=== PATIENT | female | born 1960 | race Two or more races ===

== ENCOUNTER → 2019-06-16 | Outpatient (CLI) | payer MEDICAID ==
[~2019-06-16] MED LIST: CEPH-37; HYDR-2035; METF100097; NAPR-223; SULF-35
== END | disposition home or self-care (01) ==
LOC: Rad HDHVI 10:43
PROVIDERS: ATTEND Internal Medicine
DX: Z01.810 Encounter for preprocedural cardiovascular examination (principal); I05.9 Rheumatic mitral valve disease, unspecified; E03.9 Hypothyroidism, unspecified; E66.9 Obesity, unspecified
CPT/HCPCS: 93306

== ENCOUNTER → 2019-07-15 | Outpatient (CLI) | payer MEDICAID ==
[~2019-07-15] VITALS: Ht 162.6 cm; Wt 134.7 kg
[~2019-07-15] MED LIST changes: +ADENOSINE 113 MG in GIVE UN-DILUTED 0 ML IV ONE; +ADENOSINE 90 MG/30 ML INJ IV ONE
== END | disposition home or self-care (01) ==
LOC: Rad HDHVI 08:52
PROVIDERS: ATTEND Internal Medicine
DX: Z01.810 Encounter for preprocedural cardiovascular examination (principal); E03.9 Hypothyroidism, unspecified; H26.9 Unspecified cataract; E11.9 Type 2 diabetes mellitus without complications; R63.8 Other symptoms and signs concerning food and fluid intake; Z87.2 Personal history of diseases of the skin and subcutaneous tissue
CPT/HCPCS: 78452; 93005; 96374; 96375; A9500; J0153

== ENCOUNTER → 2019-09-01 | Outpatient (CLI) | payer MEDICAID ==
[~2019-09-01] MED LIST changes: -ADENOSINE 113 MG in GIVE UN-DILUTED 0 ML IV ONE; -ADENOSINE 90 MG/30 ML INJ IV ONE
[2019-09-01 08:30] VITALS: BP 149/67
[2019-09-01 09:15] VITALS: BP 153/57
--- NOTE | 2019-09-01 09:15 | NUR ---
Pre-Op Discharge Summary: See e-MAR for any medications given for this visit. Pre-op orders received and carried out per MD of EKG, LABS and chest xrays. Patient given a copy of EKG with instructions to go to [facility] out patient for further follow up care.
[2019-09-01 12:17] LABS: Basophils # (auto) 0 uL; Basophils % (auto) 0.7 % (0.0-2.0); Calcium 9.1 mg/dL (8.5-10.1); Eosinophils # (auto) 0.1 uL; Eosinophils % (auto) 1.9 % (0.0-7.0); Hematocrit 33.5 % (36.0-46.0); Hemoglobin 11.3 g/dL (12.2-16.2); Lymphocytes # (auto) 1.5 uL; Lymphocytes % (auto) 27.1 % (10.0-50.0); Mean Corpuscular Hemoglobin 29.6 pg (28.0-32.0); Mean Corpuscular Hgb Conc. 33.7 g/dL (32.0-36.0); Mean Corpuscular Volume 87.9 fL (80.0-100.0); Monocytes # (auto) 0.3 uL; Neutrophils # (auto) 3.5 uL; Neutrophils % (auto) 64.3 % (37.0-80.0); Nucleated Red Blood Cells % 0.1 %; Platelet Count (auto) 179 10^3/uL (140-450); Potassium 4.3 mmol/L (3.5-5.1); Red Blood Cells 3.81 10^6/uL (4.0-5.20); White Blood Cell 5.5 10^3/uL (4.4-10.8)
[2019-09-01 12:19] LABS: BUN/Creatinine Ratio 50.6
[2019-09-01 12:33] LABS: INR 0.95 (0.9-1.15); Partial Thromboplastin Time 27.2 sec (23.64-32.05)
== END | disposition home or self-care (01) ==
LOC: Rad HDHVI 08:15
PROVIDERS: ATTEND Internal Medicine
DX: I70.0 Atherosclerosis of aorta (principal)
CPT/HCPCS: 36415; 71046; 80048; 85025; 85610; 85730; 93005; G0463

== ENCOUNTER → 2019-09-17 | Day surgery (SDC) | payer MEDICAID ==
[~2019-09-17] VITALS: Ht 162.6 cm; Wt 129.3 kg
[~2019-09-17] MED LIST changes: +ANGIOMAX 250 MG VIAL IV ONE; +HEPARIN IN NS 1000Units/500mL 0 ML ONE; +IOHEXOL 350 MG/ML 100ML IJ ONE; +LIDOCAINE 2%HCL (LOCAL ANESTH.) INJ 20ML MDV ONE; +MIDAZOLAM HCL 1MG/1ML-2 ML VIAL ONE; +SODIUM CHL 0.9% 0 ML ONE; +fentaNYL CITRATE 100 MCG/2 ML VL ONE
== END | disposition home or self-care (01) ==
LOC: CATH 09:04
PROVIDERS: ATTEND Internal Medicine
DX: Z53.8 Procedure and treatment not carried out for other reasons (principal)
CPT/HCPCS: J2250

== ENCOUNTER 2023-03-05 11:41 | Inpatient (IN) | payer MEDICAID ==
[~2023-03-05] VITALS: Ht 165.1 cm; Wt 142.8 kg
[~2023-03-05 11:41] MED LIST changes: -ANGIOMAX 250 MG VIAL IV ONE; -HEPARIN IN NS 1000Units/500mL 0 ML ONE; -IOHEXOL 350 MG/ML 100ML IJ ONE; -LIDOCAINE 2%HCL (LOCAL ANESTH.) INJ 20ML MDV ONE; -MIDAZOLAM HCL 1MG/1ML-2 ML VIAL ONE; -SODIUM CHL 0.9% 0 ML ONE; -fentaNYL CITRATE 100 MCG/2 ML VL ONE
[2023-03-05] MEDS ORDERED: methylPREDNISolone SOD SUCC 125 MG/2 ML VL IV ONE (12:15)
[2023-03-05 13:17] LABS: Basophils # (auto) 0 10 ^3/uL (0-0.2); Basophils % (auto) 0.8 % (0.0-2.0); Eosinophils # (auto) 0.1 10 ^3/uL (0-0.8); Eosinophils % (auto) 1.1 % (0.0-7.0); Hematocrit 37.5 % (36.0-46.0); Hemoglobin 12.7 g/dL (12.2-16.2); Lymphocytes # (auto) 0.5 10 ^3/uL (0.4-5.4); Lymphocytes % (auto) 8.7 % (10.0-50.0); Mean Corpuscular Hemoglobin 30.6 pg (28.0-32.0); Mean Corpuscular Hgb Conc. 33.9 g/dL (32.0-36.0); Mean Corpuscular Volume 90.2 fL (80.0-100.0); Monocytes # (auto) 0.4 10 ^3/uL (0-1.3); Monocytes % (auto) 6.1 % (0.0-12.0); Neutrophils % (auto) 83.3 % (37.0-80.0); Nucleated Red Blood Cells % 0.1 %; Red Blood Cells 4.15 10^6/uL (4.0-5.20); Red Cell Distribution Width 14.1 % (11.8-14.3)
[2023-03-05 13:32] LABS: Albumin 1.9 g/dL (3.4-5.0); BUN/Creatinine Ratio 15.9 (10.0-20.0); Calcium 7.6 mg/dL (8.5-10.1); Potassium 4.1 mmol/L (3.5-5.1)
[2023-03-05 13:35] LABS: Bilirubin, Total 0.7 mg/dL (0.2-1.0); Total Protein 4.7 g/dL (6.4-8.2)
[2023-03-05] MEDS ORDERED: MORPHINE SULFATE INJ 2 MG/ml SYRG IV PRN (16:45)
[2023-03-05] MEDS ORDERED: ACETAMINOPHEN 325 MG TAB PO PRN (16:45)
[2023-03-05] MEDS ORDERED: ALBUTEROL SULF 2.5 MG/0.5ML(0.5%) NEB SOLN NEB PRN (16:45)
[2023-03-05] MEDS ORDERED: NITROGLYCERIN 0.4 MG SL TAB SL PRN (16:45)
[2023-03-05] MEDS ORDERED: FUROSEMIDE 20 MG/2 ML VIAL IV ONE (16:45)
[2023-03-05] MEDS ORDERED: DEXTROSE (50%) 50ML SYRG IV PRN (16:45)
[2023-03-05] MEDS ORDERED: ENOXAPARIN SOD 120 MG/0.8 ML SYRINGE SC ONE (17:00)
[2023-03-05 17:54] LABS: Cholesterol 303 mg/dL (< 200); Triglycerides 141 mg/dL (< 150)
[2023-03-05 17:57] LABS: HDL Cholesterol 63 mg/dL (40-59); LDL Cholesterol 207 mg/dL (< 100)
[2023-03-05] MEDS: ACCU-CHEK COMFORT CURVE STRIP VI SCH ×2 (20:00→23:59)
[2023-03-05] MEDS: InsuLIN REG 1unit/0.01ml Soln (100units/ml) SC SCH ×2 (20:04→23:33)
[2023-03-05] MEDS ORDERED: hydrALAZINE HCL 20 MG/ML VL IV PRN (20:45)
[2023-03-05] MEDS ORDERED: IOHEXOL 350 MG/ML 100ML IJ ONE (21:57)
[2023-03-05] MEDS ORDERED: ENOXAPARIN SOD 120 MG/0.8 ML SYRINGE SC SCH (22:00)
[2023-03-05] MEDS ORDERED: amLODIPine BESYLATE 5 MG TAB ONE (22:59)
[2023-03-05] MEDS ORDERED: amLODIPine BESYLATE 5 MG TAB PO ONE (23:00)
[2023-03-05 23:52] VITALS: BP 189/75
[2023-03-06] VITALS (8 sets, daily range): BP systolic 126–189; BP diastolic 47–82
[2023-03-06 05:38] LABS: Basophils # (auto) 0 10 ^3/uL (0-0.2); Basophils % (auto) 0.5 % (0.0-2.0); Eosinophils # (auto) 0 10 ^3/uL (0-0.8); Hematocrit 38.2 % (36.0-46.0); Lymphocytes # (auto) 0.6 10 ^3/uL (0.4-5.4); Mean Corpuscular Hemoglobin 30.6 pg (28.0-32.0); Mean Corpuscular Hgb Conc. 34.1 g/dL (32.0-36.0); Mean Corpuscular Volume 89.9 fL (80.0-100.0); Monocytes # (auto) 0.1 10 ^3/uL (0-1.3); Monocytes % (auto) 1.5 % (0.0-12.0); Neutrophils # (auto) 5.5 10 ^3/uL (1.6-8.6); Nucleated Red Blood Cells % 0.2 %; Red Blood Cells 4.25 10^6/uL (4.0-5.20); Red Cell Distribution Width 13.7 % (11.8-14.3); White Blood Cell 6.3 10^3/uL (4.4-10.8)
[2023-03-06] MEDS: InsuLIN REG 1unit/0.01ml Soln (100units/ml) SC SCH ×4 (06:32→21:58)
[2023-03-06] MEDS: ACCU-CHEK COMFORT CURVE STRIP VI SCH ×4 (06:33→21:53)
[2023-03-06 06:51] LABS: Albumin 1.8 g/dL (3.4-5.0); BUN/Creatinine Ratio 20.4 (10.0-20.0); Bilirubin, Total 0.7 mg/dL (0.2-1.0); Calcium 7.6 mg/dL (8.5-10.1); Potassium 4.2 mmol/L (3.5-5.1); Total Protein 4.7 g/dL (6.4-8.2)
[2023-03-06] MEDS ORDERED: ENOXAPARIN SOD 120 MG/0.8 ML SYRINGE SC SCH (08:00)
[2023-03-06] MEDS: FUROSEMIDE 20 MG/2 ML VIAL IV SCH (10:02)
[2023-03-06] MEDS: amLODIPine BESYLATE 5 MG TAB PO SCH (10:36)
[2023-03-06] MEDS: ENOXAPARIN SOD 40 MG/0.4 ML SYRINGE SC SCH ×2 (10:36→22:01)
[2023-03-06] MEDS ORDERED: cefTRIAXone 1GM/50ML D5W 50 ML IV ONE (12:15)
[2023-03-06] MEDS ORDERED: AZITHROMYCIN 500MG/ 250ML 250 ML IV ONE (13:00)
[2023-03-06] MEDS ORDERED: ATORVASTATIN 20 MG TAB PO SCH (22:00)
[2023-03-07 05:00] VITALS: BP 113/41
[2023-03-07 05:57] LABS: Urine Bacteria FEW /hpf (None Seen); Urine Blood 1+ /uL (Negative); Urine Specific Gravity 1.008 (1.001-1.035); Urine WBC <1 /hpf (0 - 5)
[2023-03-07] MEDS: ACCU-CHEK COMFORT CURVE STRIP VI SCH ×3 (06:02→17:41)
[2023-03-07] MEDS: InsuLIN REG 1unit/0.01ml Soln (100units/ml) SC SCH ×3 (06:03→17:41)
[2023-03-07 08:00] VITALS: BP 161/62
[2023-03-07 09:00] VITALS: BP 161/62
[2023-03-07] MEDS ORDERED: cefTRIAXone 1GM/50ML D5W 50 ML IV SCH (09:00)
[2023-03-07] MEDS ORDERED: AZIT500T66 PO (09:52)
[2023-03-07] MEDS ORDERED: ALBUAER3 IN (09:52)
[2023-03-07] MEDS: FUROSEMIDE 20 MG/2 ML VIAL IV SCH (09:53)
[2023-03-07] MEDS: amLODIPine BESYLATE 5 MG TAB PO SCH (09:54)
[2023-03-07] MEDS ORDERED: ATO40T PO (09:55)
[2023-03-07] MEDS: ENOXAPARIN SOD 40 MG/0.4 ML SYRINGE SC SCH (10:00)
[2023-03-07] MEDS ORDERED: AZITHROMYCIN 500MG/ 250ML 250 ML IV SCH (10:00)
[2023-03-07 13:00] VITALS: BP 123/39
[2023-03-07 15:17] VITALS: BP 123/35
[2023-03-07 17:00] VITALS: BP 134/66
== END 2023-03-07 21:25 | disposition home or self-care (01) | DRG 139 ==
LOC: ER 11:41 → TELE 16:42 → TELE-EAST 21:26
PROVIDERS: ADMIT Nurse Practitioner Family; ATTEND Family Medicine
DX: J18.9 Pneumonia, unspecified organism (principal); J96.01 Acute respiratory failure with hypoxia; E03.9 Hypothyroidism, unspecified; Z20.822 Contact with and (suspected) exposure to COVID-19; E11.9 Type 2 diabetes mellitus without complications; E66.01 Morbid (severe) obesity due to excess calories; E78.00 Pure hypercholesterolemia, unspecified; I10 Essential (primary) hypertension; Z68.43 Body mass index [BMI] 50.0-59.9, adult; Z98.51 Tubal ligation status
CPT/HCPCS: 36415; 36600; 71046; 71275; 80053; 80061; 81001; 82805; 82962; 83036; 83605; 83880; 84443; 84484; 85025; 85379; 87040; 87426; 87804; 93005; 94640; 96372; 96374; 96375; G0378; J0696; J1815